=== PATIENT | male | born 1980 | race Caucasian/White ===

== ENCOUNTER 2022-09-16 05:29 | Emergency (ER) | payer BC ==
--- NOTE | 2022-09-16 06:08 | ERPHSYRPT ---
- History of Present Illness Time Seen by Provider: 09/16/22 06:04 Source: patient Exam Limitations: no limitations Patient Subjective Stated Complaint: pt states "I called a friend and I told them to call wellness check at his address. I hate being sober" he reports that "I don't have a plan but think it would be nice to be hit by a truck or to drive my car into a pond next to where my son is buried." when asked when the thoughts of killing himself started he says they "have been there forever" Triage Nursing Assessment: pt ambulated into room 3 along with a client manager large law, pt is alert and oriented times three, resp even and unlabored, speaks in complete sentences, and denies pain or nausea. Physician History: Patient is a 42-year-old male presents to our ED via PD for evaluation of suicidal ideation. Patient's friend notified PD to perform a wellness check. Patient advised police that he was suicidal. Patient states he has a history of substance abuse alcoholism. Patient reports that his son of pulmonary hypertension January 2021. Since then his alcohol abuse has worsened. Patient has been depressed. Patient has been having ongoing thoughts of killing himself. Patient has thought of getting hit by a truck or driving his car into a pond. Patient denies ingesting toxic substances. Patient is depressed tearful. Patient states he misses his son terribly. Patient's symptoms are constant. Symptoms are moderate in intensity. No specific worsening improving factors. Patient voices no other complaints or concerns at this time. Portions of this note were created with voice recognition technology. There may be grammatical, spelling, punctuation or sound alike errors Timing/Duration: today Severity of Symptoms-Max: moderate Severity of Symptoms-Current: mild Context related to: recent Suicidal thoughts: specific plan Associated Symptoms: depressed Previous symptoms: same symptoms as today Allergies/Adverse Reactions: No Known Drug Allergies Allergy (Unverified 05/12/14 17:13) Home Medications: Furosemide 20 mg [Lasix 20 mg] 20 mg PO DAILY 09/16/22 [History] Glyburide 5 mg [Micronase 5 MG] 5 mg PO BID 09/16/22 [History] Losartan Potassium 100 mg PO DAILY 09/16/22 [History] Multivit-Minerals/FA/Lycopene [One Daily For Men Tablet] 1 each PO DAILY 09/16/22 [History] Potassium Chloride 10 meq PO DAILY 09/16/22 [History] Sertraline HCl 100 mg PO DAILY 09/16/22 [History] Hx Tetanus, Diphtheria Vaccination/Date Given: No Hx Influenza Vaccination/Date Given: No Hx Pneumococcal Vaccination/Date Given: No Immunizations Up to Date: No Travel Risk - International Travel Have you traveled outside of the country in past 3 weeks: No - Coronavirus Screening Are you exhibiting any of the following symptoms?: No Close contact with a COVID-19 positive Pt in past 14-21 Days: No - Vaccine Status Have you recieved a Covid-19 vaccination: No - Past Medical History Pertinent Past Medical History: Yes Neurological History: No Pertinent History ENT History: No Pertinent History Cardiac History: High Cholesterol, Hypertension Respiratory History: Bronchitis Endocrine Medical History: Diabetes Type II Musculoskeletal History: Other GI Medical History: No Pertinent History History: No Pertinent History Psycho-Social History: Anxiety, Depression Male Reproductive Disorders: No Pertinent History Other Medical History: hx of right knee surgery, left knee surgery, right wrist surgery, umbilical hernia repair, gout - Past Surgical History Past Surgical History: Yes Neuro Surgical History: No Pertinent History Cardiac: No Pertinent History Respiratory: No Pertinent History Gastrointestinal: Other Genitourinary: No Pertinent History Musculoskeletal: Orthopedic Surgery Male Surgical History: No Pertinent History Other Surgical History: arthroscopic knee surg L knee and r knee, umbilical hernia repair, right wrist surgeru - Social History Smoking Status: Former smoker How long have you smoked: 15 Exposure to second hand smoke: Yes Drug Use: marijuana, other Patient Lives Alone: No - Review of Systems Constitutional: No Symptoms, No Fever, No Chills Eyes: No Symptoms Ears, Nose, & Throat: No Symptoms Respiratory: No Symptoms, No Cough, No Dyspnea Cardiac: No Symptoms, No Chest Pain, No Edema, No Syncope Abdominal/Gastrointestinal: No Symptoms, No Abdominal Pain, No Nausea, No Vomiting, No Diarrhea Genitourinary Symptoms: No Symptoms, No Dysuria Musculoskeletal: No Symptoms, No Back Pain, No Neck Pain Skin: No Symptoms, No Rash Neurological: No Symptoms, No Dizziness, No Focal Weakness, No Sensory Changes Psychological: No Symptoms Endocrine: No Symptoms Hematologic/Lymphatic: No Symptoms Immunological/Allergic: No Symptoms All Other Systems: Reviewed and Negative - Nursing Vital Signs Nursing Vital Signs: Initial Vital Signs Temperature 98.4 F 09/16/22 05:35 Pulse Rate 92 H 09/16/22 05:35 Respiratory Rate 16 09/16/22 05:35 Blood Pressure 175/107 09/16/22 05:35 O2 Sat by Pulse Oximetry 99 09/16/22 05:35 Pain Scale Pain Intensity 0 - Physical Exam General Appearance: obese, other (Patient is tearful and expressing emotional distress over the loss of his son.) Eyes, Ears, Nose, Throat Exam: normal ENT inspection, TMs normal, pharynx no rmal, moist mucous membranes Neck Exam: normal inspection, non-tender, supple, full range of motion Respiratory Exam: normal breath sounds, lungs clear, airway intact, No respiratory distress Cardiovascular Exam: regular rate/rhythm, normal heart sounds, normal peripheral pulses, No edema Gastrointestinal/Abdominal Exam: soft, normal bowel sounds, No tenderness, No distention Extremities Exam: normal inspection, normal range of motion, No evidence of injury, No edema Current Suicidality: denies suicide plan Neurological Exam: alert, 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, oriented x 3 Appearance: appropriate appearance Behavior/Eye Contact/Speech: alert & cooperative, cooperative, good eye contact, normal speech Thoughts/Hallucinations: normal thought pattern Skin Exam: normal color, warm, dry, No rash SpO2 Interpretation: normal SpO2: 99 O2 Delivery: Room Air - Course Nursing assessment & vital signs reviewed: Yes EKG Interpreted by Me: RATE (92), Sinus Rhythm, NORMAL AXIS, NORMAL INTERVALS Ordered Tests: Active Orders 24 hr Category Date Time Status EKG-ER Only STAT Care 09/16/22 05:39 Active IV Insertion STAT Care 09/16/22 06:43 Active ACETAMINOPHEN Stat Lab 09/16/22 05:55 Completed CBC W DIFF Stat Lab 09/16/22 05:55 Completed CMP Stat Lab 09/16/22 05:55 Completed ETHYL ALCOHOL Stat Lab 09/16/22 05:55 Completed SALICYLATE Stat Lab 09/16/22 05:55 Completed UA W/RFX UR CULTURE Stat Lab 09/16/22 05:55 Completed Urine Triage Profile Stat Lab 09/16/22 05:55 Completed Medication Summary Generic Name Dose Route Start Last Admin Trade Name Freq PRN Reason Stop Dose Admin Sodium Chloride 1,000 mls @ 999 mls/hr 09/16/22 06:43 09/16/22 06:54 Sodium Chloride 0.9% 1000 Ml IV 09/16/22 07:43 999 mls/hr .[id number] STA Administration Discontinued Medications Generic Name Dose Route Start Last Admin Trade Name Mitchell PRN Reason Stop Dose Admin Sodium Chloride Confirm 09/16/22 06:53 Sodium Chloride 0.9% 1000 Ml Administered 09/16/22 06:54 Dose 1,000 mls @ ud .ROUTE .[facility] Lab/Rad Data: Laboratory Result Diagrams 09/16/22 05:55 09/16/22 05:55 Laboratory Results 09/16/22 09/16/22 09/16/22 Range/Units 05:55 05:55 05:55 WBC (4.0-10.5) x10^3/uL RBC (4.1-5.6) x10^6/uL Hgb (12.5-18.0) g/dL Hct (42-50) % MCV (78-100) fL MCH (26-32) pg MCHC (32-36) g/dL RDW (11.5-14.0) % Plt Count (150-450) x10^3/uL MPV (7.5-11.0) fL Gran % (36.0-66.0) % Immature Gran % (Auto) (0.00-0.4) % Nucleat RBC Rel Count (0.00-0.1) % Eos # (Auto) (0-0.5) x10^3/uL Immature Gran # (Auto) (0.00-0.03) x10^3u/L Absolute Lymphs (auto) (1.0-4.6) x10^3/uL Absolute Monos (auto) (0.0-1.3) x10^3/uL Absolute Nucleated RBC (0.00-0.01) x10^3u/L Lymphocytes % (24.0-44.0) % Monocytes % (0.0-12.0) % Eosinophils % (0.00-5.0) % Basophils % (0.0-0.4) % Absolute Granulocytes (1.4-6.9) x10^3/uL Basophils # (0-0.4) x10^3/uL Sodium 142 (137-145) mmol/L Potassium 3.9 (3.5-5.1) mmol/L Chloride 100 (98-107) mmol/L Carbon Dioxide 27 (22-30) mmol/L Anion Gap 18.8 H (5-15) MEQ/L BUN 7 L (9-20) mg/dL Creatinine 0.81 (0.66-1.25) mg/dL Estimated GFR > 60.0 ML/MIN Glucose 131 H (74-106) mg/dL Calcium 9.4 (8.4-10.2) mg/dL Total Bilirubin 0.60 (0.2-1.3) mg/dL AST 76 H (17-59) U/L ALT 97 H (0-50) U/L Alkaline Phosphatase 57 (38-126) U/L Serum Total Protein 8.3 H (6.3-8.2) g/dL Albumin 4.7 (3.5-5.0) g/dL Urine Color Yellow (Yellow) Urine Appearance Clear (Clear) Urine pH 5.5 (4.6-8.0) Ur Specific [place] 1.015 (1.005-1.030) Urine Protein Trace A (Negative) Urine Glucose (UA) Negative (Negative) mg/dL Urine Ketones Negative (Negative) Urine Blood Negative (Negative) Urine Nitrite Negative (Negative) Urine Bilirubin Negative (Negative) Urine Urobilinogen 0.2 (0.2) mg/dL Ur Leukocyte Esterase Negative (Negative) U Hyaline Cast (Auto) NONE SEEN (0-2) /LPF Urine Microscopic RBC 0-2 (0-5) /HPF Urine Microscopic WBC 0-2 (0-5) /HPF Ur Epithelial Cells None Seen (None Seen) /HPF Urine Bacteria None Seen (None Seen) /HPF Urine Culture Reflexed NO (NO) Salicylates < 1.0 L (2-20) mg/dL Urine Opiates Level NEGATIVE (NEGATIVE) Ur Methadone NEGATIVE (NEGATIVE) Acetaminophen < 10 L (10-30) ug/ml Urine Barbiturates NEGATIVE (NEGATIVE) Ur Phencyclidine (PCP) NEGATIVE (NEGATIVE) Urine Amphetamine NEGATIVE (NEGATIVE) U Benzodiazepine Level NEGATIVE (NEGATIVE) Urine Cocaine NEGATIVE (NEGATIVE) Urine Marijuana (THC) POSITIVE (NEGATIVE) Ethyl Alcohol 98 H (0-10) mg/dL 09/16/22 Range/Units 05:55 WBC 6.8 (4.0-10.5) x10^3/uL RBC 5.26 (4.1-5.6) x10^6/uL Hgb 16.4 (12.5-18.0) g/dL Hct 49.5 (42-50) % MCV 94.1 (78-100) fL MCH 31.2 (26-32) pg MCHC 33.1 (32-36) g/dL RDW 12.9 (11.5-14.0) % Plt Count 391 (150-450) x10^3/uL MPV 10.3 (7.5-11.0) fL Gran % 45.2 (36.0-66.0) % Immature Gran % (Auto) 0.1 (0.00-0.4) % Nucleat RBC Rel Count 0.0 (0.00-0.1) % Eos # (Auto) 0.20 (0-0.5) x10^3/uL Immature Gran # (Auto) 0.01 (0.00-0.03) x10^3u/L Absolute Lymphs (auto) 2.90 (1.0-4.6) x10^3/uL Absolute Monos (auto) 0.56 (0.0-1.3) x10^3/uL Absolute Nucleated RBC 0.00 (0.00-0.01) x10^3u/L Lymphocytes % 42.4 (24.0-44.0) % Monocytes % 8.2 (0.0-12.0) % Eosinophils % 2.9 (0.00-5.0) % Basophils % 1.2 (0.0-0.4) % Absolute Granulocytes 3.09 (1.4-6.9) x10^3/uL Basophils # 0.08 (0-0.4) x10^3/uL Sodium (137-145) mmol/L Potassium (3.5-5.1) mmol/L Chloride (98-107) mmol/L Carbon Dioxide (22-30) mmol/L Anion Gap (5-15) MEQ/L BUN (9-20) mg/dL Creatinine (0.66-1.25) mg/dL Estimated GFR ML/MIN Glucose (74-106) mg/dL Calcium (8.4-10.2) mg/dL Total Bilirubin (0.2-1.3) mg/dL AST (17-59) U/L ALT (0-50) U/L Alkaline Phosphatase (38-126) U/L Serum Total Protein (6.3-8.2) g/dL Albumin (3.5-5.0) g/dL Urine Color (Yellow) Urine Appearance (Clear) Urine pH (4.6-8.0) Ur Specific [place] (1.005-1.030) Urine Protein (Negative) Urine Glucose (UA) (Negative) mg/dL Urine Ketones (Negative) Urine Blood (Negative) Urine Nitrite (Negative) Urine Bilirubin (Negative) Urine Urobilinogen (0.2) mg/dL Ur Leukocyte Esterase (Negative) U Hyaline Cast (Auto) (0-2) /LPF Urine Microscopic RBC (0-5) /HPF Urine Microscopic WBC (0-5) /HPF Ur Epithelial Cells (None Seen) /HPF Urine Bacteria (None Seen) /HPF Urine Culture Reflexed (NO) Salicylates (2-20) mg/dL Urine Opiates Level (NEGATIVE) Ur Methadone (NEGATIVE) Acetaminophen (10-30) ug/ml Urine Barbiturates (NEGATIVE) Ur Phencyclidine (PCP) (NEGATIVE) Urine Amphetamine (NEGATIVE) U Benzodiazepine Level (NEGATIVE) Urine Cocaine (NEGATIVE) Urine Marijuana (THC) (NEGATIVE) Ethyl Alcohol (0-10) mg/dL - Progress Progress: improved Progress Note: Patient reassessed. Patient more calm. Not as tearful. Work-up reveals an a nion gap acidosis of 18.8. Positive marijuana use and alcohol intoxication. Slight elevation of AST/ALT. This is likely alcohol related. We will bolus patient normal saline. Placement pending. Patient endorsed to Dr. Rod at approximately 7 AM to oversee correction of anion gap acidosis and placement. Portions of this note were created with voice recognition technology. There may be grammatical, spelling, punctuation or sound alike errors 09/16/22 06:44 09/16/22 06:45 - Departure Clinical Impression: Depressed mood, Suicidal ideation, High anion gap metabolic acidosis, Marijuana use, Alcohol intoxication Condition: Stable Critical Care Time: No Referrals: PATRICIA LUNA NP [Primary Care Provider] - Follow up/PCP as directed
[2022-09-16 06:15] LABS: Appearance Clear (Clear); Bacteria None Seen /HPF (None Seen); Bilirubin Negative (Negative); Blood Negative (Negative); Epithelial Cells None Seen /HPF (None Seen); Glucose, Urine Negative (Negative); Hyaline Casts NONE SEEN /LPF (0-2); Ketones Negative (Negative); Leukocyte Esterase Negative (Negative); Nitrite Negative (Negative); Ph 5.5 (4.6-8.0); Protein,Urine Dip Trace (Negative); RBC 0-2 /HPF (0-5); Specific Gravity 1.015 (1.005-1.030); Urobilinogen 0.2 mg/dL (0.2); WBC 0-2 /HPF (0-5)
[2022-09-16 06:19] LABS: ADD URINE CULTURE? NO (NO)
[2022-09-16 06:22] LABS: Absolute Neutrophil Ct (ANC) 3.09 x10^3/uL (1.4-6.9); BASOPHIL % 1.2 % (0.0-0.4); Basophil (Absolute #) 0.08 x10^3/uL (0-0.4); Eosinophil % 2.9 % (0.00-5.0); Hematocrit 49.5 % (42-50); Hemoglobin 16.4 g/dL (12.5-18.0); IMMATURE GRAN # 0.01 x10^3u/L (0.00-0.03); IMMATURE GRAN % 0.1 % (0.00-0.4); Lymphocytes % 42.4 % (24.0-44.0); Mean Cell Volume 94.1 fL (78-100); Mean Corpuscular Hemoglobin 31.2 pg (26-32); Mean Corpuscular Hgb Concent. 33.1 g/dL (32-36); Mean Platelet Volume 10.3 fL (7.5-11.0); Monocyte (Absolute #) 0.56 x10^3/uL (0.0-1.3); Monocytes % 8.2 % (0.0-12.0); Neutrophil % 45.2 % (36.0-66.0); Platelet Count 391 x10^3/uL (150-450); Red Blood Count 5.26 x10^6/uL (4.1-5.6); Red Cell Distribution Width 12.9 % (11.5-14.0); White Blood Count 6.8 x10^3/uL (4.0-10.5)
[2022-09-16 06:27] LABS: Amphetamine,Urine NEGATIVE (NEGATIVE); Barbiturate,Urine NEGATIVE (NEGATIVE); Benzodiazepine,Urine NEGATIVE (NEGATIVE); Cocaine,Urine NEGATIVE (NEGATIVE); Methadone,Urine NEGATIVE (NEGATIVE); Opiate,Urine NEGATIVE (NEGATIVE); PCP,Urine NEGATIVE (NEGATIVE); THC,Urine POSITIVE (NEGATIVE)
[2022-09-16 06:35] LABS: ACETAMINOPHEN < 10 ug/ml (10-30); ALBUMIN 4.7 g/dL (3.5-5.0); ALKALINE PHOSPHATASE 57 U/L (38-126); ANION GAP 18.8 MEQ/L (5-15); BLOOD UREA NITROGEN 7 mg/dL (9-20); CHLORIDE 100 mmol/L (98-107); Calcium 9.4 mg/dL (8.4-10.2); Carbon Dioxide 27 mmol/L (22-30); Creatinine 1 0.81 mg/dL (0.66-1.25); EST GLOMERULAR FILTRATION RATE > 60.0 ML/MIN; ETHYL ALCOHOL 98 mg/dL (0-10); Glucose 131 mg/dL (74-106); Potassium 3.9 mmol/L (3.5-5.1); SALICYLATE < 1.0 mg/dL (2-20); SGOT/AST 76 U/L (17-59); SGPT/ALT 97 U/L (0-50); SODIUM 142 mmol/L (137-145); Total Protein 8.3 g/dL (6.3-8.2)
[2022-09-16] MEDS ORDERED: Sodium Chloride 0.9% 1000 ML 1,000 ML IV STA (06:43)
[2022-09-16] MEDS ORDERED: Sodium Chloride 0.9% 1000 ML 1,000 ML ONE (06:53)
[2022-09-16 08:59] LABS: INFLUENZA A NEGATIVE (NEGATIVE); INFLUENZA B NEGATIVE (NEGATIVE); RESPIRATORY SYNCTIAL VIRUS NEGATIVE (NEGATIVE); SARS-CoV-2 Xpert Express NEGATIVE (NEGATIVE)
[2022-09-16 16:53] VITALS: BP 184/102
[2022-09-16] MEDS ORDERED: Ativan 0.5 MG PO ONE (17:05)
[2022-09-16] MEDS ORDERED: Ativan 2 MG/1 ML VIAL IM ONE (18:11)
[2022-09-16] MEDS ORDERED: Ativan 2 MG/1 ML VIAL ONE (18:13)
[2022-09-16 18:20] VITALS: PULSE 100; O2SAT 97
== END 2022-09-16 19:16 ==
LOC: ED 05:29
DX: F32.A Depression, unspecified (principal); R45.851 Suicidal ideations; E87.20 Acidosis, unspecified; F12.90 Cannabis use, unspecified, uncomplicated; F10.929 Alcohol use, unspecified with intoxication, unspecified; Y90.4 Blood alcohol level of 80-99 mg/100 ml; Z63.4 Disappearance and death of family member; E78.5 Hyperlipidemia, unspecified; I10 Essential (primary) hypertension; E11.9 Type 2 diabetes mellitus without complications; Z79.84 Long term (current) use of oral hypoglycemic drugs; Z79.899 Other long term (current) drug therapy; Z28.310 Unvaccinated for COVID-19
CPT/HCPCS: 0241U; 36000; 36415; 80053; 80143; 80179; 80307; 81001; 82077; 85025; 93005; 96360; 96372; 99285; J2060; A9270-GY